=== PATIENT | female | born 1965 | race Caucasian/White ===

== ENCOUNTER 2021-04-22 16:47 | Emergency (ER) | payer MEDICAID ==
[~2021-04-22] VITALS: Ht 193 cm; Wt 77.1 kg
[2021-04-22 16:53] VITALS: BP 154/95
--- NOTE | 2021-04-22 17:14 | NUR ---
PATIENT AMBULATED TO BED 6.
--- NOTE | 2021-04-22 17:31 | NUR ---
56 Y/O F C/O DOG BITE ABOUT AN HOUR AGO. PT HAS A LACERATION ON HER R RING FINGER FROM A DOG BITE. PT HAS NO PAIN AT THIS TIME. ALLERGIES: DAIRY, BEE STING PMH: HTN
--- NOTE | 2021-04-22 17:42 | NUR ---
DR PAKRER AT BEDSIDE.
[2021-04-22] MEDS ORDERED: LIDOCAINE 2% 1000 MG/50 ML VIAL INJ ONE (17:45)
[2021-04-22] MEDS ORDERED: BACTO TP (17:46)
[2021-04-22] MEDS ORDERED: AMOX-1000 PO (17:46)
--- NOTE | 2021-04-22 18:49 | NUR ---
DOG BITE REPORT FAXED. [phone]
--- NOTE | 2021-04-22 19:32 | NUR ---
GAVE REPORT TO LINDA BADILLO.
--- NOTE | 2021-04-22 19:35 | NUR ---
PT SITTING IN BED LOCKED IN LOWEST POSITION. PT REPORTS FINGER FEELING BETTER. PT ABLE TO MOVE FINGER. FINGERS GAUZED AND FINGER SPLINT ON.
[2021-04-22 19:46] VITALS: BP 149/87
--- NOTE | 2021-04-22 19:46 | NUR ---
Patient discharged with v/s stable. Written and verbal after care instructions given and explained. Patient alert, oriented and verbalized understanding of instructions. Ambulatory with steady gait. All questions addressed prior to discharge. ID band removed. Patient advised to follow up with PMD. Rx of AUGMENTIN, BACTROBAN given. Patient educated on indication of medication including possible reaction and side effects. Opportunity to ask questions provided and answered.
== END 2021-04-22 19:46 | disposition home or self-care (01) ==
LOC: MED 16:47
DX: S61.214A Laceration without foreign body of right ring finger without damage to nail, initial encounter (principal); I10 Essential (primary) hypertension; Z79.899 Other long term (current) drug therapy; W54.0XXA Bitten by dog, initial encounter; Y93.89 Activity, other specified; Y92.89 Other specified places as the place of occurrence of the external cause; Y99.8 Other external cause status
CPT/HCPCS: 12002; 73140; 90471; 90715; 99283; J2001; Q0092

== ENCOUNTER 2021-04-24 10:22 | Emergency (ER) | payer MEDICAID ==
[~2021-04-24] VITALS: Ht 160 cm; Wt 77.1 kg
[~2021-04-24 10:22] MED LIST: AMOX-1000 PO; BACTO TP
[2021-04-24 10:34] VITALS: BP 136/78
--- NOTE | 2021-04-24 10:44 | NUR ---
56 Y/O FEMALE AMBULATED TO BED 6, SEEN HERE 2 DAYS AGO FOR SUTURE REPAIR ON RING FINGER OF RIGHT HAND. HERE FOR WOUND CHECK TODAY. DENIES PAIN, DENIES FEVER/CHILLS. DENIES N/V. PMH: HTN NKA
--- NOTE | 2021-04-24 10:55 | NUR ---
DR JOHNSON EVALUATING PATIENT AT BEDSIDE
[2021-04-24 11:15] VITALS: BP 136/78
--- NOTE | 2021-04-24 11:15 | NUR ---
Patient discharged with v/s stable. Written and verbal after care instructions given and explained. Patient verbalized understanding. Ambulatory with steady gait. All questions addressed prior to discharge. Advised to follow up with PMD.
== END 2021-04-24 11:15 | disposition home or self-care (01) ==
LOC: MED 10:22
DX: S61.214D Laceration without foreign body of right ring finger without damage to nail, subsequent encounter (principal); I10 Essential (primary) hypertension; Z79.899 Other long term (current) drug therapy; X58.XXXD Exposure to other specified factors, subsequent encounter
CPT/HCPCS: 99281